=== PATIENT | female | born 2000 | race African-American/Black ===

== ENCOUNTER 2024-11-27 10:45 | Emergency (ER) | payer OTHER ==
[2024-11-27 10:53] VITALS: BP 132/79; PULSE 82; RESP 17; TEMP 98.4; BMI 28.0
[2024-11-27] MEDS ORDERED: MECLIZINE HCL 25 MG TABLET (FP) ONE (11:55)
[2024-11-27] MEDS ORDERED: ACETAMINOPHEN INJECTION 100 ML ONE (11:55)
[2024-11-27 12:21] LABS: BASO % 0.9 % (0-2.0); EOS % 1.8 % (0-4.5); HEMOGLOBIN 12.8 GM/dL (10.7-15.3); LYMPH % 46.1 % (8-40); MCH 29.1 pg (25.7-33.7); MCHC 33.6 g/dl (32.0-36.0); MEAN CELL VOLUME 86.7 fl (80-96); MEAN PLT VOLUME 7.7 fl (7.5-11.1); MONO % 8.6 % (3.8-10.2); NEUT % 42.6 % (42.8-82.8); PLATELET COUNT 324 10^3/uL (134-434); RBC 4.38 M/mm3 (3.60-5.2); RDW 13.1 % (11.6-15.6); WHITE BLOOD COUNT 4.9 K/mm3 (4.0-10.0)
[2024-11-27] MEDS: SODIUM CHLORIDE 0.9% 500 ML INFUS.BAG IV ONE (12:22)
[2024-11-27] MEDS: ACETAMINOPHEN 1000 MG/100 ML BAG IVPB ONE (12:22)
[2024-11-27] MEDS: MECLIZINE HCL 25 MG TABLET (FP) PO ONE (12:22)
[2024-11-27 12:44] LABS: POTASSIUM 4.9 mmol/L (3.5-5.1)
[2024-11-27 12:46] LABS: ALBUMIN 3.8 g/dl (3.4-5.0); BLOOD UREA NITROGEN 9.4 mg/dL (7-18); CALCIUM 9.2 mg/dL (8.5-10.1); MAGNESIUM 2.3 mg/dL (1.8-2.4)
[2024-11-27 12:50] LABS: CREATININE 0.6 mg/dL (0.55-1.3)
[2024-11-27 12:51] LABS: BILIRUBIN,TOTAL 0.2 mg/dL (0.2-1); TOT PROT 7.7 g/dl (6.4-8.2)
== END 2024-11-27 15:33 | disposition home or self-care (01) ==
LOC: JER 10:45
PROC: 3E033NZ Introduction of Analgesics, Hypnotics, Sedatives into Peripheral Vein, Percutaneous Approach (ICD-10-PCS; principal; 2024-11-27)
DX: R42 Dizziness and giddiness (principal); R51.9 Headache, unspecified
CPT/HCPCS: 0241U-QW; 36415; 70450-TC; 80053; 83735; 84703; 85025; 93005; 93010; 99285-25; J0131